=== PATIENT | female | born 2000 | race Caucasian/White ===

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

== ENCOUNTER 2019-05-07 02:37 | Emergency (ER) | payer OTHER ==
--- NOTE | 2019-05-07 03:21 | ED ---
Substance Abuse/Use - HPI Summary HPI Summary: LEVEL 5 CAVEAT: HPI LIMITED DUE TO PATIENT INTOXICATION. This patient is a 18 year old female presenting to [facility] with a chief complaint of ETOH intoxication. - History Of Current Complaint Chief Complaint: EDSubstanceAbuse Stated Complaint: ETOH PER FRIEND - Allergies/Home Medications Home Medications: Home Medications NK [No Home Medications Reported] 05/07/19 [History Confirmed 05/07/19] PMH/Surg Hx/FS Hx/Imm Hx - Immunization History Immunizations Up to Date: Yes Infectious Disease History: Unable to Obtain/Confirm Infectious Disease History: Denies: Traveled Outside the [place] in Last 30 Days - Social History Alcohol Use: Weekly Substance Use Type: Reports: Other Substance Use Comment - Amount & Last Used: unknown Smoking Status (MU): Never Smoked Tobacco - Additional Comments History Additional Comments: LEVEL 5 CAVEAT: PMH LIMITED DUE TO PATIENT INTOXICATION. Review of Systems Positive: Other - ETOH INTOXICATION All Other Systems Reviewed And Are Negative: No Physical Exam - Summary Physical Exam Summary: Appearance: Well-appearing, Well-nourished, lying in bed comfortably Skin: Warm, dry, no obvious rash Eyes: sclera anicteric, no conjunctival pallor ENT: mucous membranes moist, pharynx appears normal Neck: Supple, nontender Respiratory: Clear to auscultation, no signs of respiratory distress Cardiovascular: Normal S1, S2. No murmurs. Normal distal pulses in tibial and radial bilaterally. Abdomen: Soft, nontender, normal active bowel sounds present Musculoskeletal: Normal, Strength/ROM Intact Neurological: Responds to noxious stimuli but is unable to answer questions. Psychiatric: affect is normal, does not appear anxious or depressed Triage Information Reviewed: Yes Vital Signs On Initial Exam: Initial Vitals Temp Pulse Resp BP Pulse Ox 97.3 F 84 16 98/61 99 05/07/19 02:40 05/07/19 02:40 05/07/19 02:40 05/07/19 02:40 05/07/19 02:40 Vital Signs Reviewed: Yes Completion Of Physical Exam Limited Due To: Level 5 Procedures - Sedation Patient Received Moderate/Deep Sedation with Procedure: No Diagnostics - Vital Signs Vital Signs Temp Pulse Resp BP Pulse Ox 05/07/19 02:40 97.3 F 84 16 98/61 99 - Laboratory Lab Statement: Any lab studies that have been ordered have been reviewed, and results considered in the medical decision making process. Course/Dx - Course Course Of Treatment: This patient is a 18 year old female presenting to [facility] with a chief complaint of ETOH intoxication. She will be signed out to Dr. Mccormick pending sobriety at 0700. - Diagnoses Provider Diagnoses: Alcohol intoxication Discharge ED - Sign-Out/Discharge Documenting (check all that apply): Sign-Out Patient Signing out patient TO: David Mccormick - Discharge Plan Condition: Stable Disposition: HOME Patient Education Materials: Alcohol Intoxication (ED) Referrals: Care [facility] [Outside] Additional Instructions: Follow up with your primary care provider in 2-3 days. RETURN TO THE ED FOR ANY WORSENING OR NEW SYMPTOMS. - Billing Disposition and Condition Condition: STABLE Disposition: Home - Attestation Statements Document Initiated by Eulogio: Yes Documenting Flavioibe: Miguel A Galeano Provider For Whom Eulogio is Documenting (Include Credential): David Lilly MD Scribe Attestation: Miguel A Lee scribed for David Lilly MD on 05/13/19 at 0428. Scribe Documentation Reviewed: Yes Provider Attestation: The documentation as recorded by the Miguel A roque accurately reflects the service I personally performed and the decisions made by , David Lilly MD Status of Scribe Document: Viewed
[2019-05-07 07:21] VITALS: BP 133/64
--- NOTE | 2019-05-07 07:24 | ED ---
Progress - Progress Note Progress Note: This pt was signed out from Dr. Lilly to Dr. Mccormick at shift change on 05/07/19 at 0700 pending sobriety. Re-Evaluation - Re-Evaluation First Eval Re-Evaluation Time: 07:28 Change: Improved Comment: Pt is up and ambulating in the department. She is clinically sober. Course/Dx - Course Course Of Treatment: Pt was signed out by Dr. Lilly pending sobriety. Pt is up and ambulating in the department. Pt is clinically sober. She will be discharged home with follow up from her PCP in 2-3 days. Pt was instructed to return to the ED for any worsening and new symptoms. - Diagnoses Provider Diagnoses: Alcohol intoxication Discharge ED - Sign-Out/Discharge Documenting (check all that apply): Patient Departure - Discharge home, Receiving Sign-Out Receiving patient FROM: David Lilly Patient Received Moderate/Deep Sedation with Procedure: No - Discharge Plan Condition: Stable Disposition: HOME Patient Education Materials: Alcohol Intoxication (ED) Referrals: Care [facility] [Outside] Additional Instructions: Follow up with your primary care provider in 2-3 days. RETURN TO THE ED FOR ANY WORSENING OR NEW SYMPTOMS. - Billing Disposition and Condition Condition: STABLE Disposition: Home - Attestation Statements Document Initiated by Scribe: Yes Documenting Scribe: Senia Flores Provider For Whom Eulogio is Documenting (Include Credential): David Mccormick MD Scribe Attestation: Senia Lee, scribed for David Mccormick MD on 05/07/19 at 1537. Scribe Documentation Reviewed: Yes Provider Attestation: The documentation as recorded by the Senia roque accurately reflects the service I personally performed and the decisions made by me, David Mccormick MD Status of Scribe Document: Viewed
== END 2019-05-07 07:44 | disposition home or self-care (01) ==
LOC: ED 02:37
DX: F10.929 Alcohol use, unspecified with intoxication, unspecified (principal)
CPT/HCPCS: 99282